=== PATIENT | male | born 1950 | race Caucasian/White ===

== ENCOUNTER 2019-11-11 07:06 | Day surgery (SDC) | payer MEDICARE, OTHER ==
[~2019-11-11 07:06] MED LIST: Lactated Ringers 1,000 ML IV SCH; Sodium Chloride 0.9% 10 ML Syringe FLUSH PRN
[2019-11-11] MEDS ORDERED: Propofol 200 MG/20 ML SDV ONE (07:21)
[2019-11-11] MEDS ORDERED: fentaNYL 100 MCG/2 ML SDV ONE (07:22)
[2019-11-11 09:21] VITALS: PULSE 55
[2019-11-11 09:35] VITALS: BP 113/78
--- NOTE | 2019-11-12 08:25 | OR ---
PREOPERATIVE DIAGNOSIS: History of colon polyps. POSTOPERATIVE DIAGNOSIS: Multiple colon polyps. ANESTHESIA: MAC anesthesia. COMPLICATIONS: None. BLOOD LOSS: Minimal. FINDINGS: 1. Ascending colon polyp, 2 mm, cold forceps. 2. Transverse colon polyp, 1 mm, cold forceps. 3. Transverse colon polyp, 2 mm, cold forceps. 4. Sigmoid polyp, 3 mm, hot snare. 5. Rectal nodule, 2 mm, hot snare. 6. Mild sigmoid diverticulosis. BOWEL PREP: [employer] class 2. INDICATIONS FOR PROCEDURE: Mr. Parks is a 69-year-old male who has a history of colon polyps. His last colonoscopy was in 2013 and he had 1 adenoma at that time. He denies any change in bowel habits or bloody or dark black stools. No personal or family history of colon cancer, who is here for screening colonoscopy. DETAILS OF PROCEDURE: After informed consent was obtained, the patient was brought to the procedure room and placed in left lateral decubitus position. MAC anesthesia was induced by Anesthesia colleagues. The colonoscope was introduced into the rectum and advanced all the way to the cecum. The appendiceal orifice and ileocecal valve were photographed. The endoscope was then slowly withdrawn. No pathology was identified other than what was mentioned in the findings section. The patient tolerated the procedure well, was awoken from MAC anesthesia by Anesthesia colleagues without incident. START TIME: 0839. CECUM TIME: 0844. STOP TIME: 0908. PATHOLOGY: A) Colon, ascending polyp: Sessile serrated adenoma B) Colon, transverse polyp: Tubular adenoma C) Colon, transverse polyp (2mm): Tubular adenoma D) Colon, sigmoid polyp Tubular adenoma E) Anal tissue, "rectal nodule": Pedunculated anal tissue with thrombosed venous varicosity consistent with hemorrhoids Repeat screening colonoscopy recommended in 3 years. RKM: 11/11/2019 09:12:44 MODL: 11/11/2019 14:59:08 /[id number] JASMEET
--- NOTE | 2019-11-20 15:52 | LETTER ---
11/19/2019 RE: UMER PELLETIER : 1950 Umer Pelletier [address] [place] [id number] Dear Mr. Pelletier: I am writing to inform you of your pathology results from your recent colonoscopy. You had 4 tubular adenomas. A tubular adenoma is a polyp that is considered precancerous. It does not contain cancer cells, but it can become cancer which is why we removed them. You will need another repeat screening colonoscopy in 3 years. Warmest regards,
== END 2019-11-11 10:52 | disposition home or self-care (01) ==
LOC: VM.SDS 07:06
PROVIDERS: ATTEND Student in an Organized Health Care Education/Training Program
DX: Z12.11 Encounter for screening for malignant neoplasm of colon (principal); D12.2 Benign neoplasm of ascending colon; D12.3 Benign neoplasm of transverse colon; D12.5 Benign neoplasm of sigmoid colon; K64.5 Perianal venous thrombosis; K57.30 Diverticulosis of large intestine without perforation or abscess without bleeding; R03.0 Elevated blood-pressure reading, without diagnosis of hypertension; E78.2 Mixed hyperlipidemia; Z85.46 Personal history of malignant neoplasm of prostate; Z87.891 Personal history of nicotine dependence; Z86.010 Personal history of colon polyps; Z98.890 Other specified postprocedural states; Z79.899 Other long term (current) drug therapy
CPT/HCPCS: 00812; 45380; 45385; 88305; J2704; J3010; J7120; 45384

== ENCOUNTER 2022-12-03 19:47 | Observation (INO) | payer MEDICARE, OTHER ==
[2022-12-03] MEDS ORDERED: Sodium Chloride 0.9% 1,000 ML IV ONE (20:10)
[2022-12-03] MEDS ORDERED: Sodium Chloride 0.9% 10 ML Syringe FLUSH PRN (20:10)
[2022-12-03] MEDS ORDERED: Pantoprazole 40 MG Vial IVPUSH ONE (20:11)
[2022-12-03 20:14] LABS: BASOPHILS PERCENT AUTO 0.6 % (0.2-1.2); HEMOGLOBIN 10.6 g/dL (14.0-18.0); LYMPHOCYTES ABSOLUTE AUTO 1.1 x10^3/uL (1.0-4.8); LYMPHOCYTES PERCENT AUTO 16.6 % (25.0-50.0); MEAN CORPUSCULAR HEMOGLOBIN 32.3 pg (26.0-32.0); MEAN CORPUSCULAR HGB CONC 35.3 g/dL (32.0-36.0); MEAN CORPUSCULAR VOLUME 91.5 fL (78.0-93.0); MONOCYTES ABSOLUTE AUTO 0.6 x10^3/uL (0.0-0.8); MONOCYTES PERCENT AUTO 8.4 % (2.0-11.0); NEUTROPHILS ABSOLUTE AUTO 5.1 x10^3/uL (1.8-7.7); NEUTROPHILS PERCENT AUTO 74.4 % (50.0-80.0); PLATELET COUNT,PLT 246 x10^3/uL (130-400); RED BLOOD CELL COUNT 3.28 x10^6/uL (4.5-6.0); WHITE BLOOD CELL COUNT,WBC 6.8 x10^3/uL (4.0-10.0)
[2022-12-03 20:28] LABS: PROTHROMBIN TIME 10.4 SEC (9.5-12.2); PTT,PARTIAL THROMBOPLSTIN TIME 27.8 SEC (23.6-33.6)
[2022-12-03] MEDS ORDERED: Pantoprazole 40 MG Vial ONE (20:29)
[2022-12-03 20:31] LABS: A/G RATIO 1.28; ALANINE AMINOTRANSFERASE,ALT 23 U/L (16-63); ALBUMIN 3.7 g/dL (3.4-5.0); ALKALINE PHOSPHATASE 54 U/L (46-116); ASPARTATE AMNIOTRANSFERASE,AST 19 U/L (15-37); BILIRUBIN TOTAL 0.4 mg/dL (0.2-1.0); BLOOD UREA NITROGEN,BUN 30 mg/dL (7-18); CALCIUM 8.8 mg/dL (8.5-10.1); CARBON DIOXIDE,CO2 28 mmol/L (21-32); CHLORIDE,CL 103 mmol/L (98-107); CREATININE 1.3 mg/dL (0.70-1.30); GLUCOSE RANDOM 140 mg/dL (70-99); MAGNESIUM 2.1 mg/dL (1.8-2.4); POTASSIUM,K 4.4 mmol/L (3.5-5.1); PROTEIN TOTAL,TP 6.6 g/dL (6.4-8.2); SODIUM,NA 140 mmol/L (136-145)
[2022-12-03 20:32] LABS: ANION GAP 13.4 mmol/L (5-15); ESTIMATED GFR 58 mL/min (>=60)
[2022-12-03] MEDS: Pantoprazole 40 MG in Sodium Chloride 0.9% 100 ML IV SCH (21:30)
[2022-12-03] MEDS ORDERED: Lactated Ringers 1,000 ML IV SCH (21:45)
[2022-12-04] MEDS: Pantoprazole 40 MG in Sodium Chloride 0.9% 100 ML IV SCH ×2 (02:25→08:58)
[2022-12-04 07:14] LABS: BASOPHILS PERCENT AUTO 0.7 % (0.2-1.2); HEMATOCRIT 27.3 % (40.0-52.0); HEMOGLOBIN 9.4 g/dL (14.0-18.0); IMMATURE GRAN ABSOLUTE AUTO 0.01 x10^3/uL (0.00-0.07); LYMPHOCYTES ABSOLUTE AUTO 1.2 x10^3/uL (1.0-4.8); LYMPHOCYTES PERCENT AUTO 27.4 % (25.0-50.0); MEAN CORPUSCULAR HGB CONC 34.4 g/dL (32.0-36.0); MEAN CORPUSCULAR VOLUME 92.9 fL (78.0-93.0); MONOCYTES ABSOLUTE AUTO 0.5 x10^3/uL (0.0-0.8); MONOCYTES PERCENT AUTO 11.8 % (2.0-11.0); NEUTROPHILS ABSOLUTE AUTO 2.5 x10^3/uL (1.8-7.7); NEUTROPHILS PERCENT AUTO 59.9 % (50.0-80.0); PLATELET COUNT,PLT 252 x10^3/uL (130-400); RED BLOOD CELL COUNT 2.94 x10^6/uL (4.5-6.0); WHITE BLOOD CELL COUNT,WBC 4.2 x10^3/uL (4.0-10.0)
[2022-12-04 11:17] VITALS: BP 138/67; PULSE 62
[2022-12-04] MEDS ORDERED: HYDROmorphone 0.5 MG/0.5 ML Syringe IVPUSH ONE (14:01)
== END 2022-12-04 12:00 | disposition home or self-care (01) ==
LOC: VM.ED 19:47 → VM.MS 20:53
PROVIDERS: ADMIT Physician Assistant; ATTEND Physician Assistant
DX: K92.2 Gastrointestinal hemorrhage, unspecified (principal); K26.4 Chronic or unspecified duodenal ulcer with hemorrhage; D64.9 Anemia, unspecified; K92.1 Melena; K64.9 Unspecified hemorrhoids; R56.9 Unspecified convulsions; F17.210 Nicotine dependence, cigarettes, uncomplicated; Z79.899 Other long term (current) drug therapy
CPT/HCPCS: 36415; 80053; 83735; 84100; 85025; 85610; 85730; 96361; 96365; 96366; 96374; 96376; 99223; 99239; 99284-25; C9113; G0378; J3490; J7030; J7120